=== PATIENT | female | born 1990 | race Caucasian/White ===

== ENCOUNTER 2023-07-02 15:37 | Emergency (ER) | payer OTHER, SELFPAY ==
[2023-07-02 15:55] VITALS: BP 126/77; PULSE 81; RESP 18; TEMP 36.5; O2SAT 99
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
== END 2023-07-02 19:20 | disposition home or self-care (01) ==
PROVIDERS: Emergency Provider Student in an Organized Health Care Education/Training Program
DX: T74.21XA Adult sexual abuse, confirmed, initial encounter (principal)
CPT/HCPCS: 99281